=== PATIENT | female | born 1960 | race Caucasian/White ===

== ENCOUNTER 2020-05-02 12:45 | Inpatient (IN) | payer MEDICAID ==
[~2020-05-02] VITALS: Ht 175.3 cm; Wt 79.4 kg
--- NOTE | 2020-05-02 13:00 | NUR ---
Midsternal chest pain radiating to neck since 730am while at rest Took 324 of asa at home hx of mi with 2 stents has been compliant with f/u with cardiologists/meds smoker
--- NOTE | 2020-05-02 13:10 | NUR ---
cxr at bedside lab at bedside
[2020-05-02 13:17] LABS: BASOPHILS % (AUTO) 1 % (0-1); EOSINOPHILS % (AUTO) 0 % (1-7); LYMPHOCYTES % (AUTO) 28 % (22-44); MEAN CORPUSCULAR HEMOGLOBIN 35.9 pg (27.0-34.8); MEAN CORPUSCULAR HGB CONC 34.3 g/dL (32.4-35.8); MEAN PLATELET VOLUME 8.1 fL (7.4-10.4); MONOCYTES % (AUTO) 6 % (2-9); NEUTROPHILS % (AUTO) 65 % (42-75); PLATELET COUNT 203 x10^3/uL (130-400); RED BLOOD COUNT 4.36 x10^6/uL (3.82-5.3); RED CELL DISTRIBUTION WIDTH 12.7 % (9.6-15.2)
[2020-05-02 13:18] LABS: MD NO
[2020-05-02] MEDS ORDERED: NITROGLYCERIN SINGLE TAB 0.4 MG SL ONE (13:19)
[2020-05-02 13:25] LABS: ALANINE AMINOTRANSFERASE 38 U/L (12-78); ALBUMIN 3.6 g/dL (3.4-5.0); ANION GAP 7 mmol/L (5-15); CALCIUM 8.9 mg/dL (8.5-10.1); CHLORIDE 109 mmol/L (98-107); CREATININE 0.89 mg/dL (0.55-1.02)
[2020-05-02 13:29] LABS: ALKALINE PHOSPHATASE 104 U/L (45-117); BILIRUBIN,TOTAL 0.6 mg/dL (0.2-1.0); TROPONIN I < 0.015 ng/mL (0.000-0.045)
[2020-05-02] MEDS ORDERED: NITROGLYCERIN 0.4 MG BOTTLE (25 TABS) SL ONE (13:30)
[2020-05-02] MEDS ORDERED: SODIUM CHLORIDE FLUSH 10ML SYR IVF PRN (15:00)
--- NOTE | 2020-05-02 15:56 | NUR ---
Irene bronson swab obtained-walked to lab
[2020-05-02] MEDS ORDERED: DOCUSATE 100 MG CAPSULE PO PRN (16:00)
[2020-05-02] MEDS ORDERED: ACETAMINOPHEN 325 MG TABLET PO PRN (16:00)
[2020-05-02] MEDS ORDERED: hydrALAzine 20 MG/ML, 1ML IVPush PRN (16:00)
[2020-05-02] MEDS ORDERED: morphine SULFATE 10 MG/ML, 1ML IVPush PRN (16:00)
[2020-05-02] MEDS ORDERED: BISACODYL 10 MG SUPP PR PRN (16:00)
[2020-05-02] MEDS ORDERED: NITROGLYCERIN 0.4 MG/SPRAY SL PRN (16:00)
[2020-05-02] MEDS ORDERED: PHARMACY MAY ADJ FOR RENAL FX MC PRN (16:00)
[2020-05-02] MEDS ORDERED: ONDANSETRON 2MG/ML, 2ML IVPush PRN (16:00)
[2020-05-02] MEDS ORDERED: NICOTINE 21 MG/24 HR PATCH.TD24 TD ONE (16:00)
[2020-05-02] MEDS ORDERED: POLYETHYLENE GLYCOL 17 GM PACKET PO PRN (16:00)
[2020-05-02] MEDS ORDERED: ONDANSETRON ODT 4 MG PO PRN (16:00)
[2020-05-02] MEDS ORDERED: NITROGLYCERIN 0.4 MG BOTTLE (25 TABS) SL PRN (16:00)
[2020-05-02] MEDS ORDERED: FUROSEMIDE 20 MG/2 ML IV ONE (16:00)
[2020-05-02] MEDS ORDERED: ENALAPRILAT 1.25 MG/ML, 2ML IVPush PRN (16:00)
--- NOTE | 2020-05-02 16:24 | NUR ---
CALLED TO ROOM WITH WORSENING CHEST PAIN. VSS EXCEPT ROOM AIR POX TO 87% WITH GOOD WAVEFORM. PLACED ON 2L, ECG OBTAINED
[2020-05-02 16:41] LABS: TROPONIN I < 0.015 ng/mL (0.000-0.045)
[2020-05-02] MEDS ORDERED: [UNRECOGNIZED DRUG - REMARK] MC SCH (17:00)
[2020-05-02 17:15] VITALS: BP 170/92
[2020-05-02] MEDS: ENOXAPARIN 40 MG/0.4 ML SQ SCH (17:54)
[2020-05-02 17:59] VITALS: BP 133/79
[2020-05-02 19:12] VITALS: BP 92/60
[2020-05-02] MEDS: ATORVASTATIN 80 MG TABLET PO SCH (20:09)
[2020-05-02 20:12] VITALS: BP 99/66
[2020-05-02 22:30] LABS: TROPONIN I < 0.015 ng/mL (0.000-0.045)
[2020-05-03 02:03] VITALS: BP 117/82
[2020-05-03] MEDS ORDERED: ASPIRIN 81 MG TABLET EC PO SCH (06:00)
[2020-05-03 06:06] LABS: BASOPHILS % (AUTO) 1 % (0-1); EOSINOPHILS % (AUTO) 1 % (1-7); LYMPHOCYTES % (AUTO) 38 % (22-44); MEAN CORPUSCULAR HEMOGLOBIN 35.8 pg (27.0-34.8); MEAN CORPUSCULAR HGB CONC 33.5 g/dL (32.4-35.8); MEAN PLATELET VOLUME 8.1 fL (7.4-10.4); MONOCYTES % (AUTO) 8 % (2-9); NEUTROPHILS % (AUTO) 52 % (42-75); PLATELET COUNT 159 x10^3/uL (130-400); RED BLOOD COUNT 3.94 x10^6/uL (3.82-5.3); RED CELL DISTRIBUTION WIDTH 13.2 % (9.6-15.2)
[2020-05-03 06:09] LABS: MD NO
[2020-05-03 06:21] LABS: ANION GAP 3 mmol/L (5-15); CALCIUM 8.4 mg/dL (8.5-10.1); CHLORIDE 111 mmol/L (98-107)
[2020-05-03 06:23] LABS: CREATININE 0.95 mg/dL (0.55-1.02)
[2020-05-03 07:13] VITALS: BP 104/72
[2020-05-03] MEDS: SENNA/DOCUSATE TABLET PO SCH (09:00)
[2020-05-03 09:55] VITALS: BP 107/72
[2020-05-03] MEDS: METOPROLOL SUCCINATE 25 MG TAB.ER.24H PO SCH (09:59)
[2020-05-03] MEDS: CITALOPRAM 20 MG TABLET PO SCH (12:14)
[2020-05-03] MEDS: CLOPIDOGREL 75 MG TABLET PO SCH (12:14)
[2020-05-03] MEDS: ASPIRIN 81 MG TABLET EC PO SCH (12:21)
[2020-05-03 13:12] VITALS: BP 118/76
[2020-05-03] MEDS: ENOXAPARIN 40 MG/0.4 ML SQ SCH (16:00)
[2020-05-03] MEDS: ATORVASTATIN 80 MG TABLET PO SCH (20:54)
[2020-05-03 20:57] VITALS: BP 110/76
[2020-05-03] MEDS ORDERED: NICOTINE GUM 2 MG BC PRN (21:00)
[2020-05-03] MEDS ORDERED: hydrOXyzine 50MG TABLET PO PRN (21:00)
[2020-05-03] MEDS ORDERED: NICOTINE 21 MG/24 HR PATCH.TD24 TD SCH (21:30)
[2020-05-04 00:56] VITALS: BP 119/85
[2020-05-04] MEDS: ASPIRIN 81 MG TABLET EC PO SCH (06:09)
[2020-05-04] MEDS: METOPROLOL SUCCINATE 25 MG TAB.ER.24H PO SCH (06:09)
[2020-05-04 08:12] VITALS: BP 110/72
[2020-05-04] MEDS ORDERED: REGADENOSON 0.4 MG/5 ML SYRINGE ONE (08:38)
[2020-05-04] MEDS: CLOPIDOGREL 75 MG TABLET PO SCH (08:52)
[2020-05-04] MEDS: CITALOPRAM 20 MG TABLET PO SCH (08:52)
[2020-05-04] MEDS: SENNA/DOCUSATE TABLET PO SCH (08:52)
[2020-05-04 12:56] VITALS: BP 112/78
[2020-05-04] MEDS ORDERED: FAMO20TA7 PO (14:57)
[2020-05-04] MEDS: ENOXAPARIN 40 MG/0.4 ML SQ SCH (15:42)
[2020-05-04] MEDS ORDERED: FAMOTIDINE 20 MG TABLET PO SCH (21:00)
== END 2020-05-04 16:40 | disposition home or self-care (01) | DRG 243 ==
LOC: ED 14:00 → EDIP 14:41 → 4WST 16:50
PROVIDERS: ADMIT Family Medicine; ATTEND Family Medicine
DX: K21.9 Gastro-esophageal reflux disease without esophagitis (principal); E66.9 Obesity, unspecified; M94.0 Chondrocostal junction syndrome [Tietze]; F17.200 Nicotine dependence, unspecified, uncomplicated; F32.9 Major depressive disorder, single episode, unspecified; F41.9 Anxiety disorder, unspecified; I10 Essential (primary) hypertension; J44.9 Chronic obstructive pulmonary disease, unspecified; Z20.828 Contact with and (suspected) exposure to other viral communicable diseases; I20.0 Unstable angina; I25.2 Old myocardial infarction; Z68.25 Body mass index [BMI] 25.0-25.9, adult; Z95.5 Presence of coronary angioplasty implant and graft
CPT/HCPCS: 36415; 71045; 78452; 80048; 80053; 84484; 85025; 93005; 93017; G0378; J1650; J2785; A9502; J1940; J2270; U0003